=== PATIENT | male | born 1940 | race Caucasian/White ===

== ENCOUNTER 2019-02-04 00:13 | Emergency (ER) | payer MEDICARE, BC ==
[2019-02-04 00:27] VITALS: BP 125/110; PULSE 75
[2019-02-04] MEDS ORDERED: Ondansetron 4 MG/2 ML SDV IVPUSH ONE (00:46)
[2019-02-04] MEDS ORDERED: HYDROmorphone 0.5 MG/0.5 ML Syringe IVPUSH ONE ×2 (00:46→03:18)
--- NOTE | 2019-02-04 00:51 | EDM.PDOC ---
ED HPI GENERAL MEDICAL PROBLEM - General Chief Complaint: Gastrointestinal Problem Stated Complaint: POSSIBLE APPENDICITIS Time Seen by Provider: 02/04/19 00:41 Source of Information: Reports: Patient, Family History Limitations: Reports: No Limitations - History of Present Illness INITIAL COMMENTS - FREE TEXT/NARRATIVE: This is a 78-year-old gentleman. Today he had an upset stomach and this evening apparently he vomited 1. He had abdominal pain in the upper abdomen now is moved down into the right lower quadrant area. He is no longer nauseated but he did develop some chest pain after he vomited. 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 They've been watching it for quite some time. Due to his abdominal symptoms they think he might have an appendicitis. He does have a history of a recent cold and upper respiratory type symptoms. The only surgery he has had was a hiatal hernia that was repaired in December of this year. He denies any fever or chills. He denies any other acute symptoms. Bilateral Abdominal Pain Score (Numeric/FACES): 5 - Related Data Allergies Allergy/AdvReac Type Severity Reaction Status Date / Time Penicillins Allergy Rash Verified 02/04/19 00:27 Home Meds: Home Meds Albuterol [Proair HFA] 1 puff INH DAILY PRN 12/23/14 [History] Fluticasone/Salmeterol [Advair 250-50] 1 puff INH BID 12/23/14 [History] Metoprolol Tartrate 25 mg PO BID 12/23/14 [History] Montelukast [Singulair] 10 mg PO ONETIME 12/23/14 [History] Tamsulosin [Flomax] 0.4 mg PO DAILY 12/23/14 [History] Clobetasol Propionate [Temovate 0.05% Oint] 1 gm TOP DAILY 02/04/19 [History] Furosemide [Lasix] 20 mg PO DAILY 02/04/19 [History] Levothyroxine 25 mcg PO DAILY 02/04/19 [History] Past Medical History HEENT History: Reports: Other (See Below) Other HEENT History: partial right eye blind Cardiovascular History: Reports: Aneurysm Respiratory History: Reports: Asthma Musculoskeletal History: Reports: Other (See Below) Other Musculoskeletal History: l knee replacement Endocrine/Metabolic History: Reports: Hypothyroidism - Past Surgical History GI Surgical History: Reports: Hernia, Abdominal Social & Family History - Tobacco Use Smoking Status *Q: Never Smoker Second Hand Smoke Exposure: No - Caffeine Use Caffeine Use: Reports: Coffee - Alcohol Use Days Per Week of Alcohol Use: 3 Number of Drinks Per Day: 2 Total Drinks Per Week: 6 - Recreational Drug Use Recreational Drug Use: No ED ROS GENERAL - Review of Systems Review Of Systems: See Below Constitutional: Reports: Malaise. Denies: Fever, Chills HEENT: Reports: Rhinitis Respiratory: Denies: Shortness of Breath, Cough Cardiovascular: Reports: Chest Pain Endocrine: Reports: No Symptoms GI/Abdominal: Reports: Abdominal Pain, Nausea, Vomiting. Denies: Constipation, Diarrhea : Reports: No Symptoms Musculoskeletal: Reports: No Symptoms Skin: Reports: No Symptoms Neurological: Reports: No Symptoms Psychiatric: Reports: No Symptoms Hematologic/Lymphatic: Reports: No Symptoms ED EXAM, GI/ABD - Physical Exam Exam: See Below Exam Limited By: No Limitations General Appearance: Alert, WD/WN, No Apparent Distress Eyes: Bilateral: Normal Appearance Ears: Normal External Exam Nose: Normal Inspection, Clear Rhinorrhea Throat/Mouth: Normal Inspection, Normal Lips, Normal Voice, No Airway Compromise Head: Normocephalic Neck: Supple Respiratory/Chest: No Respiratory Distress, Lungs Clear, Normal Breath Sounds Cardiovascular: Regular Rate, Rhythm, No Murmur, Other (No bruits are heard in the abdomen or the chest) GI/Abdominal Exam: Soft, Other (He does have tenderness over McBurney's point in the right lower quadrant with some guarding but no absolute rebound noted) Back Exam: Full Range of Motion Extremities: Normal Inspection, Normal Range of Motion Neurological: Alert, Oriented Psychiatric: Normal Affect, Normal Mood Skin Exam: Warm, Dry EKG INTERPRETATION EKG Date: 02/04/19 Time: 00:35 EKG Interpretation Comments: Normal sinus rhythm rate of 73, he is got an equivocal increased IL interval, no acute ST or T-wave changes, no ischemia is noted. Course - Vital Signs Last Recorded V/S: Last Vital Signs Temp 97.5 F 02/04/19 00:26 Pulse 75 02/04/19 00:26 Resp 15 02/04/19 00:26 BP 125/110 H 02/04/19 00:26 Pulse Ox 93 L 02/04/19 00:26 - Orders/Labs/Meds Orders: Active Orders 24 hr Category Date Time Status EKG Documentation Completion [RC] ASDIRECTED Care 02/04/19 00:34 Active Chest Abdomen Pelvis w Cont [CT] Stat Exams 02/04/19 00:47 Taken EKG 12 Lead [EK] Stat Ther 02/04/19 00:34 Ordered Labs: Laboratory Tests 02/04/19 02/04/19 Range/Units 00:38 00:38 WBC 9.95 H (4.23-9.07) K/mm3 RBC 4.17 L (4.63-6.08) M/mm3 Hgb 13.2 L (13.7-17.5) gm/dl Hct 38.1 L (40.1-51.0) % MCV 91.4 (79.0-92.2) fl MCH 31.7 (25.7-32.2) pg MCHC 34.6 (32.2-35.5) g/dl RDW Std Deviation 42.9 (35.1-43.9) fL Plt Count 176 (163-337) K/mm3 MPV 9.6 (9.4-12.3) fl Neut % (Auto) 76.6 H (34.0-67.9) % Lymph % (Auto) 10.5 L (21.8-53.1) % [place] % (Auto) 10.3 (5.3-12.2) % Eos % (Auto) 2.4 (0.8-7.0) Baso % (Auto) 0.1 (0.1-1.2) % Neut # (Auto) 7.63 H (1.78-5.38) K/mm3 Lymph # (Auto) 1.04 L (1.32-3.57) K/mm3 [place] # (Auto) 1.02 H (0.30-0.82) K/mm3 Eos # (Auto) 0.24 (0.04-0.54) K/mm3 Baso # (Auto) 0.01 (0.01-0.08) K/mm3 Sodium 138 (136-145) mEq/L Potassium 3.7 (3.5-5.1) mEq/L Chloride 107 (98-107) mEq/L Carbon Dioxide 22 (21-32) mEq/L Anion Gap 12.7 (5-15) BUN 21 H (7-18) mg/dL Creatinine 1.3 (0.7-1.3) mg/dL Est Cr Clr Drug Dosing 56.57 mL/min Estimated GFR (MDRD) 53 (>60) mL/min BUN/Creatinine Ratio 16.2 (14-18) Glucose 141 H (83-115) mg/dL Calcium 9.0 (8.5-10.1) mg/dL Total Bilirubin 0.7 (0.2-1.0) mg/dL AST 13 L (15-37) U/L ALT 18 (16-63) U/L Alkaline Phosphatase 72 (46-116) U/L Troponin I < 0.017 (0.00-0.056) ng/mL Total Protein 6.6 (6.4-8.2) g/dl Albumin 3.3 L (3.4-5.0) g/dl Globulin 3.3 gm/dL Albumin/Globulin Ratio 1.0 (1-2) Meds: Medications Discontinued Medications Generic Name Dose Route Start Last Admin Trade Name Juanq PRN Reason Stop Dose Admin Hydromorphone HCl 0.5 mg 02/04/19 00:46 02/04/19 00:55 Dilaudid IVPUSH 02/04/19 00:47 0.5 mg ONETIME ONE Administration Hydromorphone HCl 0.5 mg 02/04/19 03:18 02/04/19 03:22 Dilaudid IVPUSH 02/04/19 03:19 0.5 mg ONETIME ONE Administration Iopamidol 100 ml 02/04/19 01:24 02/04/19 01:25 Isovue-300 (61%) IVPUSH 02/04/19 01:25 100 ml ONETIME ONE Administration Ondansetron HCl 4 mg 02/04/19 00:46 02/04/19 00:55 Zofran IVPUSH 02/04/19 00:47 4 mg ONETIME ONE Administration - Radiology Interpretation Free Text/Narrative:: CT scan of the chest shows some mild cardiomegaly with a dilated left atrium and a 5.2 cm aneurysm of the descending aorta. CT scan of the abdomen shows a dilated appendix with some mild sofia-appendical inflammatory changes as compatible with acute appendicitis he does have an enlarged prostate noted and a left inguinal hernia containing fat. - Re-Assessments/Exams Free Text/Narrative Re-Assessment/Exam: 02/04/19 03:22 I spoke to the patient and his regarding the CT scan findings of the chest and the abdomen. Due to his history of descending aortic aneurysm and asthma and is upper respiratory infection presently I think it would be mejia that he went to a higher level of care to have his appendix removed so he will have pulmonary support as well as cardiothoracic support. After the patient and the discussed that they felt this would be appropriate as well and they want to be transferred to [facility] where they have their doctor's. His cardiothoracic surgeon is Dr. Costa. His wire harness design engineer is Dr. Pike. 02/04/19 03:26 I spoke to [place] one call who spoke to Dr. Estrada who is in surgery. Dr. Estrada agrees to accept the patient in transport and we will send him to the ER or Dr. Whitten will be waiting his arrival for evaluation and treatment. He did not speak to either physician however one call spoke to both physicians and indicated that they would accept the patient in transport to [facility] in [place]. 02/04/19 03:47 Patient is been resting comfortably since he got here his vital signs have been stable. His pulse ox is 95% on 2 L. The patient is willing to go to [facility] and the will follow in her car. 02/04/19 04:00 Patient was packaged and left the ER by ambulance in no distress. Departure - Departure Time of Disposition: 03:24 Disposition: DC/Tfer to Acute Hospital 02 Condition: Fair Clinical Impression: Descending aortic aneurysm, Cardiomegaly Acute appendicitis Qualifiers: Acute appendicitis type: with localized peritonitis Appendicitis gangrene presence: without gangrene Appendicitis perforation presence: without perforation Appendicitis abscess presence: without abscess Qualified Code(s): K35.30 - Acute appendicitis with localized peritonitis, without perforation or gangrene Asthma Qualifiers: Asthma severity: mild Asthma persistence: intermittent Asthma complication type : unspecified Qualified Code(s): J45.20 - Mild intermittent asthma, uncomplicated Upper respiratory infection Qualifiers: URI type: unspecified URI Qualified Code(s): J06.9 - Acute upper respiratory infection, unspecified - Discharge Information Referrals: Michele Stoner MD [Primary Care Provider] - ED Communication - ED Communication Date/Time Date: 02/04/19 Time Called: 03:27 - Discussed Case With (1) Discussed Case With (1): Admitting Provider Person/s Notified (1): Kianna Estrada (He agrees to accept the patient in transport to [facility]) - My Orders Last 24 Hours: My Active Orders 02/04/19 00:34 EKG Documentation Completion [RC] ASDIRECTED EKG 12 Lead [EK] Stat 02/04/19 00:47 Chest Abdomen Pelvis w Cont [CT] Stat - Assessment/Plan Last 24 Hours: My Active Orders 02/04/19 00:34 EKG Documentation Completion [RC] ASDIRECTED EKG 12 Lead [EK] Stat 02/04/19 00:47 Chest Abdomen Pelvis w Cont [CT] Stat
[2019-02-04] MEDS ORDERED: Iopamidol 612 MG/ML 100 ML Bottle IVPUSH ONE (01:24)
--- NOTE | 2019-02-05 10:58 | CT ---
CT chest Technique: Multiple axial sections were obtained through the chest. Intravenous contrast was utilized. Comparison: Prior CT chest of 08/24/11. Findings: Ascending aorta is dilated with AP dimension of 5.3 cm which in similar measurement plane measures about 5.2 cm. Mild coronary artery calcification is seen. Heart felt to be mildly enlarged. Small mediastinal lymph nodes are seen believed to be within normal limits. No axillary adenopathy is seen. Increased parenchymal density noted within the left lung base from prior exam which most likely represents atelectasis if patient has no infectious symptoms of pneumonia. Lesser atelectasis noted within the right lung base. No acute parenchymal change otherwise seen. Bone window settings were reviewed which show mild diffuse degenerative change within the spine. No acute osseous abnormality is seen. Impression: 1. Ascending aortic aneurysm with AP dimension of 5.3 cm correlating to approximately 5.2 cm in similar measurement plane on prior chest CT. 2. No evidence of aortic rupture is seen at this time. 3. Increased parenchymal density within the left lung base most likely due to atelectasis if patient has no infectious symptoms of pneumonia. Lesser atelectasis is noted within the right base. 4. Evidence of prior granulomatous disease. Diagnostic code #3 I agree with preliminary report from [facility], finalized on 02/04/19, 3:[address] abdomen and pelvis Technique: Multiple axial sections were obtained from above the dome of the diaphragm inferiorly through the pubic symphysis. Intravenous contrast was utilized. No oral contrast was given. Comparison: Visualized upper abdomen noted on prior chest CT study of 08/24/11. Findings: Small cyst is noted within the left lobe of the liver which measures 9 mm. This appears as an interval change from previous exam. Enhancing lesion which appears larger in size is noted within the more posterior left lobe which most likely is due to stable hemangioma. Spleen appears normal in size but shows incidental calcified granulomas. Adrenal glands show no nodule. Gallbladder contains no calcified gallstones. Pancreas shows no discrete abnormality. Kidneys show symmetric contrast enhancement. Slight parenchymal scar noted within the right mid to upper kidney. Small cyst is noted within the upper right kidney measuring 8 mm. Small hiatal hernia is noted. Aorta shows atherosclerotic calcification without aneurysm. No retroperitoneal adenopathy is seen. No mesenteric abnormalities are noted. Diffuse diverticuli are seen throughout the colon. No inflammatory change of diverticulitis is seen. Fat-containing left inguinal hernia is noted. Prostate gland is enlarged. Appendix is enlarged with mild surrounding inflammatory change. Impression: 1. Findings compatible with early appendicitis. 2. Other findings as noted above felt to be incidental and benign with no other acute change being seen. Diagnostic code #5 I agree with preliminary report from [facility], finalized on 02/04/19, 3:52 AM Central Time
== END 2019-02-04 04:00 ==
LOC: JD.ED 00:13
DX: I71.9 Aortic aneurysm of unspecified site, without rupture (principal); I51.7 Cardiomegaly; K35.30 Acute appendicitis with localized peritonitis, without perforation or gangrene; J45.20 Mild intermittent asthma, uncomplicated; J06.9 Acute upper respiratory infection, unspecified; E03.9 Hypothyroidism, unspecified; H54.40 Blindness, one eye, unspecified eye; Z79.899 Other long term (current) drug therapy; Z79.51 Long term (current) use of inhaled steroids; Z79.890 Hormone replacement therapy; Z88.0 Allergy status to penicillin
CPT/HCPCS: 36415; 71260; 74177; 80053; 84484; 85025; 93005; 96374; 96375; 96376; 99285; J1170; J2405; Q9967; 93010

== ENCOUNTER 2019-02-13 05:11 | Emergency (ER) | payer MEDICARE, BC ==
[2019-02-13 05:31] VITALS: BP 150/82; PULSE 79
--- NOTE | 2019-02-13 05:41 | EDM.PDOC ---
ED HPI GENERAL MEDICAL PROBLEM - General Chief Complaint: General Stated Complaint: TROUBLE URINATING Time Seen by Provider: 02/13/19 05:41 - History of Present Illness INITIAL COMMENTS - FREE TEXT/NARRATIVE: 78-year-old male presents emergency room with several concerns. He is not voiding. He does not have much of an appetite. And he is now on his 10th postoperative day after having a ruptured appendix. Patient had surgery for ruptured appendix at [facility] in [place] on Wednesday, 04 February. He was to discharge his last February 08. He developed some nausea and vomiting the first day or 2 he was home his surgeon phoned in some antinausea medication and this is felt the patient has not had much of an appetite he has not been drinking much fluids. He has not had any fevers or chills. He hasn't has not voided in a while. About the time he developed his abdominal pain initially his hemorrhoids flared up and he was developing some common cold symptoms consisting of upper airway congestion. His hemorrhoids no longer bothering him and his cold is much better. He had a few loose stools after he got home these were dark and had not abnormal Tab according to the patient but this is resolved and his stools are still pretty small but normal color. Lower Abdomen Pain Score (Numeric/FACES): 8 - Related Data Allergies Allergy/AdvReac Type Severity Reaction Status Date / Time Penicillins Allergy Rash Verified 02/04/19 00:27 Home Meds: Home Meds Albuterol [Proair HFA] 1 puff INH DAILY PRN 12/23/14 [History] Fluticasone/Salmeterol [Advair 250-50] 1 puff INH BID 12/23/14 [History] Metoprolol Tartrate 25 mg PO BID 12/23/14 [History] Montelukast [Singulair] 10 mg PO ONETIME 12/23/14 [History] Tamsulosin [Flomax] 0.4 mg PO DAILY 12/23/14 [History] Clobetasol Propionate [Temovate 0.05% Oint] 1 gm TOP DAILY 02/04/19 [History] Furosemide [Lasix] 20 mg PO DAILY 02/04/19 [History] Levothyroxine 25 mcg PO DAILY 02/04/19 [History] Past Medical History HEENT History: Reports: Other (See Below) Other HEENT History: partial right eye blind Cardiovascular History: Reports: Aneurysm Respiratory History: Reports: Asthma Musculoskeletal History: Reports: Other (See Below) Other Musculoskeletal History: l knee replacement Endocrine/Metabolic History: Reports: Hypothyroidism - Past Surgical History GI Surgical History: Reports: Hernia, Abdominal Social & Family History - Caffeine Use Caffeine Use: Reports: Coffee ED ROS GENERAL - Review of Systems Review Of Systems: See Below Constitutional: Reports: No Symptoms. Denies: Fever, Chills HEENT: Reports: Other (His cold symptoms are nearly completely gone) Respiratory: Reports: No Symptoms. Denies: Cough, Sputum Cardiovascular: Reports: No Symptoms Endocrine: Reports: No Symptoms GI/Abdominal: Reports: Decreased Appetite. Denies: Abdominal Pain, Constipation , Diarrhea, Nausea, Vomiting : Reports: No Symptoms Musculoskeletal: Reports: No Symptoms Skin: Reports: No Symptoms Neurological: Reports: No Symptoms ED EXAM, GENERAL - Physical Exam Exam: See Below General Appearance: Alert, No Apparent Distress Head: Atraumatic, Normocephalic Neck: Normal Inspection, Supple, Non-Tender, Full Range of Motion Respiratory/Chest: No Respiratory Distress, Lungs Clear, Normal Breath Sounds Cardiovascular: Regular Rate, Rhythm, No Edema, No Murmur GI/Abdominal: Normal Bowel Sounds, Soft, Non-Tender, No Distention, Other ( Abdominal exam is really quite unremarkable) Back Exam: Normal Inspection. No: CVA Tenderness (L), CVA Tenderness (R) Neurological: Alert, Oriented, Normal Cognition Psychiatric: Normal Affect, Normal Mood Skin Exam: Warm, Dry, Intact Course - Vital Signs Last Recorded V/S: Last Vital Signs Temp 37.0 C 02/13/19 05:24 Pulse 79 02/13/19 05:24 Resp 18 02/13/19 05:24 BP 150/82 H 02/13/19 05:24 Pulse Ox 94 L 02/13/19 05:24 - Orders/Labs/Meds Orders: Active Orders 24 hr Category Date Time Status Bladder Scan [RC] ASDIRECTED Care 02/13/19 05:44 Active Abdomen 2V AP Flat Upright [CR] Stat Exams 02/13/19 06:00 Taken Labs: Laboratory Tests 02/13/19 02/13/19 02/13/19 Range/Units 06:02 06:07 06:07 WBC 13.48 H (4.23-9.07) K/mm3 RBC 3.46 L (4.63-6.08) M/mm3 Hgb 11.0 L D (13.7-17.5) gm/dl Hct 31.5 L (40.1-51.0) % MCV 91.0 (79.0-92.2) fl MCH 31.8 (25.7-32.2) pg MCHC 34.9 (32.2-35.5) g/dl RDW Std Deviation 41.5 (35.1-43.9) fL Plt Count 314 D (163-337) K/mm3 MPV 8.6 L (9.4-12.3) fl Neutrophils % (Manual) 87 H (40-60) % Band Neutrophils % 0 (0-10) % Lymphocytes % (Manual) 7 L (20-40) % Atypical Lymphs % 0 % Monocytes % (Manual) 4 (2-10) % Eosinophils % (Manual) 1 (0.8-7.0) % Basophils % (Manual) 0 L (0.2-1.2) Myelocytes % 1 Platelet Estimate Adequate Plt Morphology Comment Normal Poikilocytosis 1+ slight RBC Morph Comment Not Reportable Sodium 138 (136-145) mEq/L Potassium 3.2 L (3.5-5.1) mEq/L Chloride 102 (98-107) mEq/L Carbon Dioxide 25 (21-32) mEq/L Anion Gap 14.2 (5-15) BUN 12 (7-18) mg/dL Creatinine 1.2 (0.7-1.3) mg/dL Est Cr Clr Drug Dosing 59.66 mL/min Estimated GFR (MDRD) 58 (>60) mL/min BUN/Creatinine Ratio 10.0 L (14-18) Glucose 115 (83-115) mg/dL Calcium 8.4 L (8.5-10.1) mg/dL Total Bilirubin 0.6 (0.2-1.0) mg/dL AST 23 (15-37) U/L ALT 24 (16-63) U/L Alkaline Phosphatase 91 (46-116) U/L Total Protein 6.3 L (6.4-8.2) g/dl Albumin 2.3 L (3.4-5.0) g/dl Globulin 4.0 gm/dL Albumin/Globulin Ratio 0.6 L (1-2) Lipase 30 L (73-393) U/L Urine Color Dark yellow (Yellow) Urine Appearance Clear (Clear) Urine pH 6.5 (5.0-8.0) Ur Specific [place] 1.025 (1.005-1.030) Urine Protein 2+ H (Negative) Urine Glucose (UA) Negative (Negative) Urine Ketones 1+ H (Negative) Urine Occult Blood Negative (Negative) Urine Nitrite Negative (Negative) Urine Bilirubin 1+ H (Negative) Urine Urobilinogen 4.0 H (0.2-1.0) Ur Leukocyte Esterase Negative (Negative) Urine RBC 0-5 (0-5) /hpf Urine WBC 0-5 (0-5) /hpf Ur Epithelial Cells 0-5 (0-5) /hpf Urine Bacteria Few (FEW) /hpf Urine Mucus Few (FEW) /hpf - Re-Assessments/Exams Free Text/Narrative Re-Assessment/Exam: 02/13/19 07:02 KUB and upright show no signs of obstruction minimal stool in the left and transverse colon he's developed a normal stool pattern the right urinalysis is dark and concentrated but does not appear to be infected his white count is mildly elevated without a bandemia. Chemistries are non-concerning at this point. At this point the patient has been encouraged to push more fluids and he is able to do that he drank a very large glass of water here in the emergency room he was able to void for us before drinking a lot of water. Departure - Departure Time of Disposition: 07:03 Disposition: Home, Self-Care 01 Clinical Impression: Mild dehydration - Discharge Information Referrals: Michele Stoner MD [Primary Care Provider] - Forms: ED Department Discharge Additional Instructions: Return to the emergency room with any questions problems worsening symptoms. It is important that you push your fluid intake to 8 8 ounce glasses a day at minimum. You've undergone a fairly extensive surgery it may take some time for your appetite to improve but do try and eat several small meals daily until your appetite normalizes. Follow-up with your surgeon as scheduled follow-up with your regular doctor as needed - My Orders Last 24 Hours: My Active Orders 02/13/19 05:44 Bladder Scan [RC] ASDIRECTED 02/13/19 06:00 Abdomen 2V AP Flat Upright [CR] Stat - Assessment/Plan Last 24 Hours: My Active Orders 02/13/19 05:44 Bladder Scan [RC] ASDIRECTED 02/13/19 06:00 Abdomen 2V AP Flat Upright [CR] Stat
--- NOTE | 2019-02-13 08:09 | CR ---
Abdomen: Supine view of the abdomen was obtained as well as upright study. Comparison: No prior abdominal plain film exam, previous CT abdomen and pelvis exam of 02/04/19. Bone island is noted within the right iliac bone. Mild joint space narrowing is noted within the left hip. Mild diffuse disc space narrowing is noted within the spine with endplate osteophytes. Scattered gas within nondilated small bowel and colon is seen which does not appear obstructive but could represent minimal ileus. Calcified granuloma is noted within the left lung base. Slight scarring is seen within the left base. Impression: 1. Nondilated gas within small bowel and colon. Findings do not appear obstructive but could represent mild ileus. 2. Other findings believed to be incidental as noted above. Diagnostic code #2
== END 2019-02-13 07:15 | disposition home or self-care (01) ==
LOC: JD.ED 05:11
DX: E86.0 Dehydration (principal); E03.9 Hypothyroidism, unspecified; J45.909 Unspecified asthma, uncomplicated; Z88.1 Allergy status to other antibiotic agents; Z79.890 Hormone replacement therapy; Z79.51 Long term (current) use of inhaled steroids
CPT/HCPCS: 36415; 51798; 74019; 74019-26; 80053; 81001; 83690; 85007; 85027; 99282; 99284-25